=== PATIENT | female | born 1945 | race Caucasian/White ===

== ENCOUNTER 2020-03-01 19:04 | Emergency (ER) | payer MEDICARE, SELFPAY ==
--- NOTE | ~2020-03-01 | XR_ITS ---
EXAMINATION: XR sacrum coccyx min 2V DATE: 03/01/2020 19:32 INDICATION: Backwards fall onto the buttocks. TECHNIQUE: Frontal, angled frontal and lateral views of the sacrum and coccyx were obtained. COMPARISON: None. FINDINGS: Alignment is normal. No evident fracture. Transitional lumbosacral segment which is sacralized on the right and with left-sided transverse process. 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 Right hip joint space appears relatively preserved. Likely moderate lower lumbar facet osteoart hritis. Coarse calcification in the right hemipelvis, possibly a degenerated uterine fibroid. IMPRESSION: 1. No acute osseous abnormality. Reviewed, dictated and finalized at location A.
[2020-03-01 19:14] VITALS: BP 152/65; PULSE 64; RESP 16; TEMP 37.2; O2SAT 97
--- NOTE | 2020-03-01 19:22 | ED.BACK ---
HPI - Back Pain/Injury General Chief Complaint: Back Pain/Injury Stated Complaint: pain in tailbone area Time Seen by Provider: 03/01/20 19:22 Source: patient, family and RN notes reviewed History of Present Illness HPI Narrative: Patient is a 74-year-old female who presents the urgent care with her sister with complaints of tailbone pain. Patient states that she was trying to sit onto a rolling office chair and fell onto the leg, hitting her tailbone. Patient denies any other acute complaints from the fall. Denies hitting her head. It was a ground-level fall. Patient is ambulating without difficulty. Patient states the incident occurred approximately 1 hour prior to arrival. No other acute complaints. No acute distress noted. Patient aware of the plan of care. Some parts of this dictation were generated by voice recognition software and may contain typographical and/or grammatical inaccuracies. Related Data Home Medications Medication Instructions Recorded Confirmed Anti Depressant 03/01/20 Toprol XL 03/01/20 loratadine [Claritin] 10 mg PO DAILY 03/01/20 03/01/20 Allergies Allergy/AdvReac Type Severity Reaction Status Date / Time Penicillins Allergy Unknown Verified 03/01/20 19:22 Review of Systems Review of Systems: Narrative: CONSTITUTIONAL: Denies fever, chills, or sweats. EYES: Denies visual changes, redness, or discharge. ENT: Denies rhinorrhea, congestion, sore throat, or otalgia. CARDIOVASCULAR: Denies chest pain, palpitations, or edema. RESPIRATORY: Denies cough or dyspnea. GASTROINTESTINAL: Denies abdominal pain, nausea, vomiting, or diarrhea. GENITOURINARY: Denies dysuria or hematuria. SKIN: Denies rash or itching. MUSCULOSKELETAL: Reports of pain to the tailbone NEUROLOGIC: Denies headache, numbness, or weakness. All other systems reviewed are negative, except as documented in HPI. PMFSH Comments At the time of my signature, I reviewed and agree with the nursing past medical, surgical, social, and family history. There is no relevant family history pertinent to the patient complaint. Exam Narrative: Exam Narrative: GENERAL: This is a well-nourished, well-developed patient, in no apparent distress. HEAD: normocephalic, atraumatic. EYES: PERRL. Sclera clear/white. Vision is grossly intact. EARS: External ears normal NOSE: External nose normal with no obvious nasal discharge, nares without redness, no rhinorrhea. THROAT: Mucous membranes moist NECK: Neck supple SKIN: warm, intact with no suspicious lesions or rash, good texture and turgor. NEURO: awake, alert, and oriented to person, place and time. There were no obvious focal neurologic abnormalities. EXTREMITIES: No clubbing, cyanosis, or edema. Range of motion within normal limits to bilateral hips without tenderness on palpation. No shortening. Very mild coccyx tenderness. BACK: Nontender without deformity or crepitance. No flank tenderness. Course Vital Signs Vital signs: Vital Signs Temperature 98.9 F 03/01/20 19:14 Pulse Rate 64 03/01/20 19:14 Respiratory Rate 16 03/01/20 19:14 Blood Pressure 152/65 H 03/01/20 19:14 Pulse Oximetry 97 03/01/20 19:14 Temperature 98.9 F 03/01/20 19:14 Pulse Rate 64 03/01/20 19:14 Respiratory Rate 16 03/01/20 19:14 Blood Pressure 152/65 H 03/01/20 19:14 Pulse Oximetry 97 03/01/20 19:14 Reviewed?patient is informed that they may have pre-hypertension or hypertension based on a blood pressure reading in the department. I recommend the patient call the primary care provider listed on their discharge instructions or a physician of their choice this week to arrange follow-up for further evaluation of possible pre-hypertension or hypertension. MDM - Back Pain/Injury MDM Narrative Medical decision making narrative: Reviewed x-ray results with the patient and sister. Aware that x-ray was negative for coccyx fracture. Nothing acute seen on x-ray. Advised the patient to use T
== END 2020-03-01 19:48 | disposition home or self-care (01) ==
PROVIDERS: Emergency Provider Nurse Practitioner Family
DX: S30.0XXA Contusion of lower back and pelvis, initial encounter (principal); W19.XXXA Unspecified fall, initial encounter; I10 Essential (primary) hypertension; F32.9 Major depressive disorder, single episode, unspecified
CPT/HCPCS: 72220; 99213; G0463

== ENCOUNTER 2021-03-28 11:18 | Emergency (ER) | payer MEDICARE, SELFPAY ==
[2021-03-28 11:31] VITALS: BP 149/77; PULSE 88; RESP 18; TEMP 37; O2SAT 95
--- NOTE | 2021-03-28 12:12 | ED.SKABFB ---
HPI - Skin/Abscess/Foreign Bdy General Chief complaint: Urogenital-Female Stated complaint: Vaginal Complaint Source: patient and RN notes reviewed Limitations: no limitations History of Present Illness HPI narrative: The female patient, on several meds, presents with vaginal skin complaint. Patient states she has several weeks, if not over a month long history of external vaginal irritation. She has not seen an [facility] [employer] in years, and comments it feels like a skin swelling or nipple at the lat, superior vagina prepuce area. No fever, frequency/urgency/dysuria, discharge, redness but there is mild redness/ excpriation Related Data Home Medications Medication Instructions Recorded Confirmed albuterol sulfate 2.5 mg INHALATION DIRECTED 03/28/21 03/28/21 albuterol sulfate 90 mcg INHALATION Q4-6H PRN 03/28/21 03/28/21 alprazolam 0.5 mg PO Q8-10H PRN 03/28/21 03/28/21 esomeprazole magnesium 20 mg PO DAILY 03/28/21 03/28/21 ezetimibe 10 mg PO DAILY 03/28/21 03/28/21 metoprolol succinate 50 mg PO DAILY 03/28/21 03/28/21 mirtazapine 15 mg PO DAILY 03/28/21 03/28/21 simvastatin 20 mg PO DAILY 03/28/21 03/28/21 Allergies Allergy/AdvReac Type Severity Reaction Status Date / Time Penicillins Allergy Unknown Verified 03/01/20 19:22 Review of Systems Review of Systems: General/Constitutional: No weight loss,fever Eyes: N0: Redness,discharge Ears/Nose/Throat: No: Epistaxis,ear discharge Respiratory: Denies: Hemoptysis Gastrointestinal: No Vomiting, Bleeding-rectal Skin: No Lumps, eruption Neurologic: No Focal Weakness,Sz Hematologic: Denies: Petechiae/Purpura Psychiatric: No: Suicida ideationl All Other Systems: Reviewed and Negative PMFSH Comments At time of signature, agree with nursing past medical, surgical, social and family history. There is no relevant family history pertinent to the presenting complaint Exam Narrative: General Appearance: Lean/thin appearing, No distress EYE: PERRLA, Conjunctiva clear Ears: External ear normal Nose: Normal nose Mouth/Throat: Normal appearing, Normal lips Neck: Supple Respiratory: Airway patent, No respiratory distress Cardiovascular: RRR Abdomen: Soft, Non-tender; no sig bladder- uterine prolapse w/ valsalva w/ gentle bimanual: EGBUS atrophic, [place]'s glands noncystic, granulomatous; Adnexa nontender,Vag normal Musculoskeletal: Full ROM Skin: Warm, Dry Neurological: Pleasantly demented, awake and alert, normal affect Course Vital Signs Vital signs: Vital Signs Temperature 98.6 F 03/28/21 11:31 Pulse Rate 88 03/28/21 11:31 Respiratory Rate 18 03/28/21 11:31 Blood Pressure 149/77 H 03/28/21 11:31 Pulse Oximetry 95 03/28/21 11:31 Temperature 98.6 F 03/28/21 11:31 Pulse Rate 88 03/28/21 11:31 Respiratory Rate 18 03/28/21 11:31 Blood Pressure 149/77 H 03/28/21 11:31 Pulse Oximetry 95 03/28/21 11:31 Discharge Plan Discharge Clinical Impression: Atrophic vaginitis Patient Disposition: Home, Self-Care Condition: Stable Instructions: Vaginal Atrophy (ED) Additional Instructions: See [facility] [employer] [facility] in follow-up without fail You may try OTC preparations like Monistat, sitz baths, etc. Prescriptions: New fluconazole 150 mg tablet 150 mg PO WEEKLY Qty: 2 RF: 1 Replens Gel 2.5 ea vaginal .qod Qty: 35 RF: 0 No Action ezetimibe 10 mg tablet 10 mg PO DAILY RF: 0 metoprolol succinate 50 mg tablet extended release 24 hr 50 mg PO DAILY RF: 0 esomeprazole magnesium 20 mg capsule,delayed release(DR/EC) 20 mg PO DAILY RF: 0 albuterol sulfate 2.5 mg /3 mL (0.083 %) solution for nebulization 2.5 mg inhalation DIRECTED RF: 0 albuterol sulfate 90 mcg/actuation HFA aerosol inhaler 90 mcg INHALATION Q4-6H PRN (Reason: Wheezing) RF: 0 mirtazapine 15 mg tablet 15 mg PO DAILY RF: 0 alprazolam 0.5 mg tablet 0.5 mg PO Q8-10H PRN (Reason: Anxiety) RF: 0 simvastatin 20
== END 2021-03-28 12:22 | disposition home or self-care (01) ==
PROVIDERS: Emergency Provider Emergency Medicine
DX: N95.2 Postmenopausal atrophic vaginitis (principal); E78.00 Pure hypercholesterolemia, unspecified; I10 Essential (primary) hypertension; F41.9 Anxiety disorder, unspecified
CPT/HCPCS: 99211; G0463